=== PATIENT | female | born 1930 | race Caucasian/White ===

== ENCOUNTER 2017-01-30 15:09 | Observation (INO) | payer MEDICARE, OTHER ==
[2017-01-30] VITALS (7 sets, daily range): BP systolic 142–194; BP diastolic 43–73; PULSE 60–78; RESP 16–24; O2SAT 90–95
[~2017-01-30] VITALS: Ht 167.6 cm; Wt 53.1 kg
[~2017-01-30 15:09] MED LIST: ASPI-973 PO; ATOR20TA65 PO; CARV12.52 PO; FURO-129 PO; LISI-609 PO
--- NOTE | 2017-01-30 15:21 | ED.REPORT ---
HPI-Headache Date of Service Jan 30, 2017 ED Provider: Sergo Baker DO Pt is an 86 y/o female w/ a hx of HTN, HLD, colon CA s/p colectomy, presenting to the ED with her c/o sudden-onset L-sided frontoparietal headache which began at 12:00 today. The patient does not have a history of headaches and describes this headache as the worst she has ever had and at time of interview is rated 8/10 in severity. She c/o associated blurry vision from the right eye, intermittent SOB. Pt denies photophobia, focal numbness/weakness, speech changes, fever, or eye pain.. She has been hypoxic at night with O2 saturation in the high 80s which is about 6% lower than her typical. Her PCP is currently working this up and has her on supplemental oxygen at night. She is a poor historian. Nursing Notes Stated Complaint: BLURRED VISION IN LEFT EYE, HEADACHE Chief Complaint: Headache Nursing Notes Reviewed: Yes Allergies: Coded Allergies: No Known Allergies (Verified Allergy, Unknown, 01/30/17) Scheduled Aspirin (Aspirin) 81 Mg Tablet.dr 81 MG PO NOON Atorvastatin Calcium (Atorvastatin Calcium) 20 Mg Tablet 20 MG PO HS Carvedilol (Carvedilol) 12.5 Mg Tablet 12.5 MG PO BID Furosemide (Lasix) 20 Mg Tablet 20 MG PO BID Lisinopril (Zestril) 5 Mg Tablet 5 MG PO HS General Time Seen by MD: 15:19 Chief Complaint Worst headache of life Hx Obtained From: Patient, Spouse Arrived By: Walk-in Sudden in Onset?: Yes Onset Occurred: 1 - 4 hours ago Symptom Duration: Since onset Quality: Painful Severity: Current: Moderate Severity: Maximum: Moderate Similar Sx Previous: No Past Medical History Past Medical History LBBB Colon CA s/p colectomy Hyperlipidemia Hypertension Arthritis Past Surgical History Colon cancer removed in 1969 with colectomy Appendectomy Smoking History Former Smoker Social History Drug Use: Denies drug use Other Social History: Ambulatory Status Independent Review of Systems Constitutional: Denies: Fever Eyes: Reports: Blurred right, Denies: Photophobia Neurologic: Reports: Headache, Vision change, Denies: Change LOC, Confusion, Focal weakness, Numbness, Seizure, Shaking, Slurred speech, Syncope, Unable to speak Complete sys rev & neg: except as marked. Physical Exam Initial Vital Signs Vital Signs (First) Date Time Temp Pulse Resp B/P Pulse Ox O2 Delivery O2 Flow Rate FiO2 01/30/17 15:13 36.7 75 16 194/69 93 Room Air Initial VS: Reviewed, Vital signs abnormal ENT: Mucous membranes moist, Conjunctiva normal, No scleral icterus Respiratory: Breath sounds normal, Clear to auscultation, No respiratory distress Cardiovascular: Regular rate & rhythm, Heart sounds normal, Intact distal pulses Abdomen / GI: Soft, Non-tender Extremities: Vascular intact, Neuro intact, No swelling Skin: Warm, Dry, No cyanosis Psychiatric: Mood/affect normal, Behavior normal, Normal thought content General/Constitutional: Awake, Alert, No acute distress, Cooperative, Not toxic appearing Head / Eyes: Atraumatic, Normocephalic, PERRL, EOMI, No nystagmus, No periorbital redness, No periorbital swelling, No photophobia, No scleral icterus , Conjunctiva NL, Cornea clear, Fundi NL [place] 17 on R, 36 - 40 on left Neck: Atraumatic, Supple, No meningismus, Full range of motion Neurologic: Oriented X3, Speech NL, No motor deficits, No sensory deficits, CN II - XII intact, Cerebellar NL, Memory NL Mildly confused Interpretation & Diagnostics Lab Results Interpretation Result Diagram: 01/30/17 1548 01/30/17 1548 Test 01/30/17 15:48 01/30/17 15:49 White Blood Count 7.9th/mm3 (3.8-10.1) Red Blood Count 4.48mil/mm3 (3.90-5.20) Hemoglobin 14.2g/dL (12.0-15.6) Hematocrit 42.4% (35.0-46.0) Mean Corpuscular Volume 94.6fL (81-100) Mean Corpuscular Hemoglobin 31.7pg (27.0-35.0) Mean Corpuscular Hemoglobin Concent 33.5% (32.0-37.0) Red Cell Distribution Width 13.0% (12.3-15.4) Platelet Count 206bil/L (150-400) Neutrophils (%) (Auto) 71.3% (40-74) Lymphocytes (%) (Auto) 8.1% (14-46) Monocytes (%) (Auto) 16.4% (4-12) Eosinophils (%) (Auto) 3.6% (0-5) Basophils (%) (Auto) 0.3% (0-3) Prothrombin Time 11.0sec (8.1-12.5) Prothromb Time International Ratio 1.03ratio Activated Partial Thromboplast Time 27.5sec (22.8-33.0) Sodium Level 133mEq/L (134-144) Potassium Level 3.9mEq/L (3.5-5.2) Chloride Level 93mEq/L (97-108) Carbon Dioxide Level 26mmol/L (18-29) Blood Urea Nitrogen 14mg/dL (8-27) Creatinine 0.53mg/dL (0.57-1.00) Estimat Glomerular Filtration Rate 157mL/min (>59) Glucose Level 117mg/dL (60-99) Calcium Level 9.1mg/dL (8.5-10.1) Total Bilirubin 0.4mg/dL (0.0-1.2) Aspartate Amino Transf (AST/SGOT) 24U/L (0-50) Alanine Aminotransferase (ALT/SGPT) 17U/L (0-32) Alkaline Phosphatase 70U/L (25-165) Troponin T < 0.010ug/L (0.0-0.011) Total Protein 6.8g/dL (6.4-8.4) Albumin 3.6g/dL (3.4-5.0) Hold Resendez Top Tube Received (Received) ECG Interpretation ECG Interpretation: Sinus rhythm rate 65 Prolonged KS interval LVH with IVCD Non-specific ST changes Possible LBBB - has history of LBBB in the past No change from previous Time: 17:12 Interpreted by: ED physician X-Ray Chest Interpretation Chest Xray Interpretation: IMPRESSION: Acute disease is not seen an AP portable chest. Cause of this is not identified Dictated by: Jean-Pierre Jiménez M.D. on 01/30/2017 at 16:18 Approved by: Jean-Pierre Jiménez M.D. on 01/30/2017 at 16:19 View: Portable, 1 view Interpretation / Wet Read by: Interpret - Radiologist CT Head Interpretation IMPRESSION: Abnormal focus probably calcification versus less likely bleed in the white matter of the left frontal lobe. Follow up scan in 6 hours would be useful. No other abnormality other than some atrophy and microvascular ischemic change of aging. Dictated by: Jean-Pierre Jiménez M.D. on 01/30/2017 at 15:56 Approved by: Jean-Pierre Jiménez M.D. on 01/30/2017 at 16:08 Study: Head CT no contrast Interpretation / Wet Read by: Interpret - Radiologist Re-Eval/Medical Decision Med Decision/Clinical Course Patient presents with sudden onset of left-sided headache with right eye blurred vision. Differential diagnosis initially included subarachnoid hemorrhage, subdural hematoma, tension headache, migraine, acute angle closure glaucoma. Head CT is performed and shows a small 4 mm either calcification or small bleed. Neurosurgery at [place] was consulted and recommends a 6 hour follow-up and is available to take the patient for transfer in the event of any change in patient's status. The patient is a very poor historian and for this reason more resource intensive workup was performed. Patient complained of blurred vision in the right eye and pain in left side of the head without left eye pain. Eye exam is overall normal with the exception of elevated pressure in the left eye. This is discussed with ophthalmology. They recommend timolol drops and follow-up in the morning assuming the patient is otherwise stable for discharge. Patient's labs are reassuring, she is completely pain-free after 25 g of fentanyl. She will be held for observation in the ER for subsequent head CT. Her blood pressure is being managed with a combination of one dose of IV labetalol, nicardipine infusion, and oral amlodipine. Ultimately be transferred to Dr. Vuong for ongoing observation, blood pressure management, and subsequent head CT. Source of Hx: Old records Re-Evaluation/Progress #1: Time of Eval: 16:08 Re-Evaluation/Progress Note: Discussed imaging results thus far and need for consult. Re-Evaluation/Progress #2: Time of Eval: 17:58 Re-Evaluation/Progress Note: Recheck of eye pressure after [place] drop, pressure is 37. Headache completely resolved. Consultation #1: Call Returned at: 16:48 De Icer: Agrees with eval, Requested manager labor relations Note: Case discussed with neurosurgeon Dr. Smith in [facility]. 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 Consultation #2: Referral / Consult Name: [facility] Consulted With: Bookkeeping Service Sales Agent Call Returned at: 17:51 De Icer: Agrees with eval, Agrees with plan Note: Discussed case with Dr. Robles. If eye pressure is in the 30s she can be seen in clinic tomorrow. Counseled Regarding: Diagnosis, Lab results Discharge & Departure Impression: Primary Impression: Headache Headache type: unspecified Headache chronicity pattern: acute headache Intractability: not intractable Qualified Code: R51 - Headache Discharge Condition All VS Reviewed: Yes Condition: Stable Referrals: Niesha Hammond DO Care Transferred to: Dr. Vuong Care Transferred at: 18:30 Crit Care Except Billable Proc Time Spent: 30-74 minutes Services Performed: Patient management by me, Time spent at bedside, Reviewing test results, Reviewing imaging, Discussing patient care, Documentation in record Critical Care Notes: 60 minutes for possible cerebral hemorrhage and titration of anti-hypertensives Scribe Attestation Portions of this note were transcribed by David Hawley. I, Dr. Baker personally performed the history, physical exam and medical decision-making; I reviewed and confirmed the accuracy of the information in the transcribed note. copies to: Niesha Hammond Timothy S DO Jan 30, 2017 15:21 DAVID HAWLEY Jan 30, 2017 15:29
[2017-01-30] MEDS ORDERED: fentaNYL-PF 50 mCg/mL 2 mL Inj IVPUSH ONE (15:40)
[2017-01-30] MEDS ORDERED: Ondansetron 2 mg/mL 2 mL Inj IVPUSH PRN (15:40)
[2017-01-30 15:56] LABS: BASOPHILS % (AUTO) 0.3 % (0-3); EOSINOPHILS % (AUTO) 3.6 % (0-5); MONOCYTES % (AUTO) 16.4 % (4-12); Mean Corpuscular Hemoglobin 31.7 pg (27.0-35.0); Mean Corpuscular Volume 94.6 fL (81-100); NEUTROPHILS % (AUTO) 71.3 % (40-74); Platelet Count 206 bil/L (150-400)
[2017-01-30] MEDS ORDERED: Tetracaine 0.5% 4 mL Ophthalmic Solution ONE (16:07)
--- NOTE | 2017-01-30 16:10 | DRSVH ---
PROCEDURE: CT BRAIN WITHOUT CONTRAST ([id number]) INDICATIONS: headache TECHNIQUE: Noncontrast 4.5 mm thick angled axial sections acquired from the foramen magnum to the vertex, with c oronal reformats. COMPARISON: None. FINDINGS: Image quality: Good CSF spaces: Basal cisterns are patent. No extra-axial fluid collections. The ventricles are symmet berkley in size and shape. Brain: No intracranial masses. There is a 4 mm focus of density in the white matter of the posterior left frontal lobe. Maximum Hounsfield unit is 86. This is unlikely to be hemorrhagic focus based upo n location and history of headache but this cannot be excluded at this point as an acute bleed with t he minimal clot. There is cerebral volume loss for age, with resultant ventricular and sulcal promine nce. There are periventricular and deep white matter chronic small vessel ischemic changes. There i s intracranial internal carotid artery atherosclerosis. Skull and face: Calvarium and visualized facial bones appear intact, without suspicious lesions. Sinuses: Visualized sinuses and mastoids are clear. IMPRESSION: Abnormal focus probably calcification versus less likely bleed in the white matter of the left frontal lobe. Follow up scan in 6 hours would be useful. No other abnormality other than some atrophy and microvascular ischemic change of aging. Dictated by: Jean-Pierre Jiménez M.D. on 01/30/2017 at 15:56 Approved by: Jean-Pierre Jiménez M.D. on 01/30/2017 at 16:08
[2017-01-30 16:11] LABS: INR 1.03 ratio
--- NOTE | 2017-01-30 16:21 | DRSVH ---
PROCEDURE: X-RAY CHEST ONE VIEW, PORTABLE ([id number]) INDICATIONS: dyspnea TECHNIQUE: One view of the chest was acquired. COMPARISON: [facility], CR, XR [employer] [facility] CXR MIN 3VW RT, 03/13/2016, 14:17. FINDINGS: Surgical changes and devices: threat monitoring analyst leads are seen over the chest. Lungs and pleura: No pleural effusions or pneumothorax. Lungs are clear. Mediastinum: Mediastinal contours appear normal. Calcified lymph nodes in the mediastinum consistent with old granulomatous disease are noted. Heart size is normal. Bones and chest wall: No suspicious bony lesions. Overlying soft tissues appear unremarkable. IMPRESSION: Acute disease is not seen an AP portable chest. Cause of this is not identified Dictated by: Jean-Pierre Jiménez M.D. on 01/30/2017 at 16:18 Approved by: Jean-Pierre Jiménez M.D. on 01/30/2017 at 16:19
[2017-01-30 16:41] LABS: TROPONIN T < 0.010 ug/L (0.0-0.011)
[2017-01-30] MEDS ORDERED: Labetalol 5 mg/mL 20 mL Inj IVPUSH ONE (16:45)
[2017-01-30] MEDS: 0.9% Sodium Chloride 1,000 ML IV ONE ×2 (16:54→16:58)
[2017-01-30] MEDS ORDERED: Timolol 0.5% 5 mL Ophthalmic Solution LEFT_EYE ONE (17:10)
[2017-01-30] MEDS ORDERED: NiCARdipine Inj 25 MG in Dextrose 5% 240 ML IV SCH (17:25)
[2017-01-30 20:12] LABS: APPEARANCE,URINE CLEAR (CLEAR,HAZY); COLOR,URINE STRAW (YELLOW); OCCULT BLOOD,URINE NEGATIVE (NEGATIVE); UROBILINOGEN,URINE NORMAL (NORMAL)
--- NOTE | 2017-01-30 22:12 | DRSVH ---
PROCEDURE: CT BRAIN WITHOUT CONTRAST ([id number]) INDICATIONS: f/u headache TECHNIQUE: Noncontrast 4.5 mm thick angled axial sections acquired from the foramen magnum to the vertex, with c oronal reformats. COMPARISON: [facility], CT, CT BRAIN WO CON, 01/30/2017, 15:52. FINDINGS: Image quality: Excellent. CSF spaces: Basal cisterns are patent. No extra-axial fluid collections. The ventricles are symmet berkley in size and shape. Brain: No intracranial bleeds or masses. There is cerebral volume loss for age, with resultant vent ricular and sulcal prominence. There are periventricular and deep white matter chronic small vessel ischemic changes. There is intracranial internal carotid artery atherosclerosis. The density in the left frontal white matter remains completely unchanged and is consistent with a ca lcification rather than a small hemorrhagic focus. Skull and face: Calvarium and visualized facial bones appear intact, without suspicious lesions. Sinuses: Visualized sinuses and mastoids are clear. IMPRESSION: No evidence for acute disease is seen in the CT of the brain in conjunction with previous images. A small focus of density in the white matter of the left frontal lobe is a small calcificati on of no significance. It is not a bleed. Dictated by: Jean-Pierre Jiménez M.D. on 01/30/2017 at 22:08 Approved by: Jean-Pierre Jiménez M.D. on 01/30/2017 at 22:10
[2017-01-31] VITALS (9 sets, daily range): BP systolic 140–191; BP diastolic 53–86; PULSE 72–94; RESP 18–24; O2SAT 92–94
[2017-01-31] MEDS ORDERED: hydrALAZINE 20 mg/mL Inj IVPUSH PRN (01:20)
[2017-01-31] MEDS ORDERED: Ondansetron 2 mg/mL 2 mL Inj IVPUSH PRN (01:20)
[2017-01-31] MEDS ORDERED: Polyethylene Glycol (PEG) 17 Gm Powder PO PRN (01:20)
[2017-01-31] MEDS ORDERED: Alum-Mag Hydrox-Simeth 30 mL Suspension PO PRN (01:20)
[2017-01-31] MEDS ORDERED: Labetalol 5 mg/mL 20 mL Inj IVPUSH PRN (01:20)
--- NOTE | 2017-01-31 01:49 | PCM.HPMED ---
Subjective Date of Service Jan 31, 2017 Primary Provider: Admitting Physician: Navjot Perez MD Primary Care Physician: Niesha Hammond DO Attending Physician: Navjot Perez MD Admit Status: From the Emergency Department Chief Complaint: Blurred vision in left eye and headache History of Present Illness: Patient is an 86-year-old female with a history of hypertension, each of these, colon cancer status post colectomy, she presented to the emergency department with her with a sudden onset left-sided frontoparietal headache which began at noon today. Patient is a poor historian Patient reports that on Tuesday morning she developed a headache that was very bad in her left frontal parietal. She states there were no other symptoms. Patient denies nausea, vomiting, dizziness, facial droop, inability to find words, difficulty communicating. Patient admits to a generalized weakness, not favoring one limb. She was unable to give a more complete description of the events. Review of Systems: Complete ROS was performed and pertinent positives and negatives included in the history of present illness. All other findings were negative. Allergies Coded Allergies: No Known Allergies (Verified Allergy, Unknown, 01/30/17) Home Medications Aspirin (Aspirin) 81 Mg Tablet.dr 81 MG PO NOON Atorvastatin Calcium (Atorvastatin Calcium) 20 Mg Tablet 20 MG PO HS Carvedilol (Carvedilol) 12.5 Mg Tablet 12.5 MG PO BID Furosemide (Lasix) 20 Mg Tablet 20 MG PO BID Lisinopril (Zestril) 5 Mg Tablet 5 MG PO HS PMH LBBB Colon CA s/p colectomy Hyperlipidemia Hypertension Arthritis Surgical History Colon cancer removed in 1970 with colectomy Appendectomy Family History No known family history of stroke, [place] Social History Hx Alcohol Use: Yes Hx Substance Use: No Hx Tobacco Use: No Smoking Status: Former Smoker Living Arrangement: with Family Exam Vital Signs Vital Sign - Last Date Time Temp Pulse Resp B/P Pulse Ox O2 Delivery O2 Flow Rate FiO2 01/31/17 00:25 75 18 140/53 94 Nasal Cannula 2 01/30/17 15:13 36.7 Exam General: Nondistressed, well-developed well-nourished female HEENT: NC/AT, EOM intact. Nontender sinuses, no nasal discharge. Poor dentation, no erythema, nor exudate present in oropharynx. No thyromegaly appreciated. Injected conjunctivae left eye. Constricted pupil in the right eye compared to left. CV: Regular rate and rhythm, no murmurs, gallops, or rubs appreciated RESP: Clear to auscultation bilaterally, no wheezes or rhonchi appreciated ABD: Bowel sounds normal, nondistended, nontender to palpation. EXT: No joint swelling, 1+ edema lower limb bilaterally LYMPH: No cervical or axillary adenopathy appreciated NEURO: Symmetric face, cranial nerves grossly intact, strength intact bilaterally upper and lower extremities, sensation to light touch intact bilaterally upper and lower extremities. PSYCH: Oriented 4. Linear and appropriate conversation. Some forgetfulness and vague answers Skin: No rashes or ecchymosis appreciated Lab and Diagnostics Result Diagram: 01/30/17 1548 01/30/17 1548 Assessment & Plan Patient is an 86-year-old female who presented to the emergency department with headache and left eye blurriness with a history of hypertension, and she will be , colon cancer status post colectomy 1. Headache, present upon admission and ongoing -Sudden headache accompanied by blurred vision in the right eye in the setting of history of hypertension, rule out hemorrhagic stroke -First head CT indicated bleed versus calcification, repeat head CT 2 hours later showed no change suggestive of calcification -Repeat head MRI tomorrow morning -Verify with spouse in the morning that she is at her baseline in mentation 2. Blurred vision, present upon admission and ongoing -Patient was found to have pressure of 36-40 in the left eye -Ophthalmology was consulted and recommended timolol drops -Ophthalmology recommends outpatient follow-up tomorrow, providing eye pressures remain in the 30s or less and she is safe for discharge 3. Hypertension, present upon admission and ongoing -Patient at 156/53 upon arrival at emergency department. -IV labetalol to goal of 150 to 180 systolic Patient is being admitted as observation status. I expect her to spend less than 2 midnights in the hospital Pain Evaluation: Adequate Pain Control GI Prophylaxis: Not indicated VTE Prophylaxis: SCDs Resuscitation Status: CPR: Attempt Resuscitation Attending Statement The patient was seen and examined together with Dr. Huerta on 01/31 and I agree with the history, exam and plan as outlined in the note above. Mayra Huerta DO Jan 31, 2017 01:49 Navjot Perez MD Jan 31, 2017 19:41
--- NOTE | 2017-01-31 02:21 | NUR ---
admit note/med rec Pt is admitted to room 3020 around 01:30 from ED for TIA. Pt is alert and oriented to self only, very forgetful. reported tolerable 5/10 right anterior headache, now moving to left forehead; left eye is red and left pupil is sluggish. Gets moderately SOB with exertion, resolves quickly after resting. transferred [place] to bed. Pt on 2L O2, sating mid 90s. usually uses home O2 at night; pt couldn't remember what for or how much O2. Pt is oriented to room and plan of care; she verbalized understanding. bed alarm on for safety. Unable to complete med rec because pt is unable to recall her home meds. will try again in AM or call in AM.
[2017-01-31 03:12] LABS: BASOPHILS % (AUTO) 0.3 % (0-3); EOSINOPHILS % (AUTO) 3.2 % (0-5); MONOCYTES % (AUTO) 12.4 % (4-12); Mean Corpuscular Hemoglobin 31.5 pg (27.0-35.0); Mean Corpuscular Volume 93.7 fL (81-100); NEUTROPHILS % (AUTO) 74.7 % (40-74); Platelet Count 203 bil/L (150-400)
[2017-01-31 03:37] LABS: Magnesium 1.9 mg/dL (1.6-2.6)
[2017-01-31] MEDS: Heparin 5,000 Unit/mL Inj SUBQ SCH ×2 (04:18→14:37)
--- NOTE | 2017-01-31 11:14 | NUR ---
Case Management- [employer] explained and signed/timed. Copy given to patient. Original placed in room. Hilda Mantilla RN, CCM
--- NOTE | 2017-01-31 12:28 | NUR ---
Off unit Pt off unit to MRI, [employer] aware. Addendum: 01/31/17 at 1351 by THIAGO MORRISSEY RN Pt back on unit at 1310, technical services analyst aware.
--- NOTE | 2017-01-31 13:32 | DRSVH ---
PROCEDURE: MRA ANGIOGRAM HEAD WITHOUT CONTRAST ([id number]) INDICATIONS: HEADACHES,EVALUATE FOR CVA TECHNIQUE: Noncontrast axial 3-D [id number] MR angiogram, with 3-dimensional maximum intensity projection (M IP) reformats of the internal carotid arteries and posterior circulation then performed. COMPARISON: CT brain 01/30/2017. FINDINGS: Image quality: Excellent. Anterior circulation: Intracranial internal carotid arteries demonstrate normal size and intralumina l flow signal. The flow within the paired anterior cerebral arteries is normal and symmetric. The f low within the middle cerebral arteries is normal and symmetric. The anterior communicating artery i s seen. No stenoses, occlusions, or aneurysms. Posterior circulation: Visualized portions of the vertebral arteries demonstrate normal caliber, and join to form a normal appearing basilar artery. The flow within the posterior cerebral arteries is normal and symmetric. No stenoses, occlusions, or aneurysms. IMPRESSION: Normal-appearing intracranial vasculature, no aneurysm or occlusion seen. Dictated by: Eric Romero M.D. on 01/31/2017 at 13:25 Approved by: Eric Romero M.D. on 01/31/2017 at 13:30
--- NOTE | 2017-01-31 13:40 | DRSVH ---
PROCEDURE: MRI BRAIN WITHOUT CONTRAST ([id number]) INDICATIONS: HEADACHE TECHNIQUE: Non-contrast axial T1 spin echo, axial T2 fast spin echo, sagittal and axial FLAIR, coronal T2 fast s pin echo, axial gradient echo, axial diffusion and ADC through the brain. COMPARISON: None. FINDINGS: Image quality: Excellent. CSF spaces: Ventricles appear symmetric in size and shape. Basal cisterns are patent. No extra-axi al fluid collections. Brain: No intracranial bleeds or mass effects. There is moderate cerebral volume loss for age. The re are mild periventricular and deep white matter chronic small vessel ischemic changes. Brainstem a ppears normal. Diffusion-weighted images show no acute ischemic insults. No chronic ischemic insult s. Normal intravascular flow voids are present. Skull and face: Calvarial bone marrow is normal in signal. Orbits are normal. Sinuses: Sinuses and mastoids are clear. IMPRESSION: 1. No acute intracranial findings. No acute infarct. 2. Volume loss and periventricular white matter changes likely associated with chronic microvascular ischemia.. Dictated by: Stefani Sebastian M.D. on 01/31/2017 at 13:22 Approved by: Stefani Sebastian M.D. on 01/31/2017 at 13:38
--- NOTE | 2017-01-31 14:42 | NUR ---
Social Work: Initial Assessment Data: See initial assessment. Patient is a 86 year old female who was admitted to [facility] on 01/31/17 for TIA per H&P. Patient's insurance is Medicare and [facility]. Patient's PCP is Niesha Hammond DO. EMR reviewed. SW met with patient to discuss discharge planning. SW role explained. Patient informed SW that she lives with her in [place]. Patient considers her spouse to be her main support person. Patient confirms that her spouse is her DPOA and that AD have been completed on her behalf. Patient states that she uses a walker at baseline and has oxygen that she uses at night time only. Her oxygen provider is [facility]. Patient states that her home is one story and has a ramp at the entrance. Patient does not drive and relies on her spouse for transportation needs. Patient denies having a hx of home health services of SNF. Patient denies having long term care phlebotomist care insurance or VA benefits. Upon discharge, patient states that her spouse will assist with transportation needs. SW provided patient with a discharge planning checklist and encouraged to call with any questions or concerns. Phone number provided. Patient was discussed in morning rounds. During rounds, no concerns were noted by MD or staff. SW will continue to follow for needs. Assessment: Patient will discharge home with spouse. Plan: Patient will discharge home with spouse. Spouse will assist with transportation needs. SW will continue to follow. CAROLIN Couch Addendum: 01/31/17 at 1457 by ROXI TRISTAN SS Amended: Links added.
[2017-01-31] MEDS ORDERED: LISI-567 PO (16:44)
--- NOTE | 2017-01-31 16:47 | PCM.DIMED ---
Discharge Instructions Date of Service Jan 31, 2017 Dates of Hospitalization Jan 31, 2017 at 01:03 Discharge Diagnosis Discharge Diagnosis Headache HTN Diet Discharge Diet: Low fat, Low Sodium, Heart Healthy Activity Discharge Activity: Limited until seen by PCP Call your provider Call your provider for: Fever or Chills, Excessive diarrhea, Weakness ( unilateral) Patient Instructions Follow-up with PCP in: Other (Tuesday at 8:05 am , please ask for referral for opthalmologist ) Navin Bryant MD Jan 31, 2017 16:47
--- NOTE | 2017-01-31 16:54 | PCM.DC.MED ---
Discharge Summary Date of Service Jan 31, 2017 Dates of Hospitalization Date of Hospital Admission Jan 31, 2017 at 01:03 Date of Discharge: Jan 31, 2017 Providers: Admitting Physician: Navjot Perez MD Primary Care Physician: Niesha Hammond DO Attending Physician: Lexie Easton MD Diagnosis at Time of Discharge Diagnosis at Time of Discharge Headache HTN Brief History Patient is an 86-year-old female with a history of hypertension, each of these, colon cancer status post colectomy, she presented to the emergency department with her with a sudden onset left-sided frontoparietal headache which began at noon today. Patient is a poor historian Patient reports that on Tuesday morning she developed a headache that was very bad in her left frontal parietal. She states there were no other symptoms. Patient denies nausea, vomiting, dizziness, facial droop, inability to find words, difficulty communicating. Patient admits to a generalized weakness, not favoring one limb. She was unable to give a more complete description of the events. Hospital Course Patient is an 86-year-old female who presented to the emergency department with headache and left eye blurriness with a history of hypertension, and she will be , colon cancer status post colectomy 1. Headache, present upon admission, resolved -Sudden headache accompanied by blurred vision in the right eye in the setting of history of hypertension -First head CT indicated bleed versus calcification, repeat head CT 2 hours later showed no change suggestive of calcification -MRI -ve for any acute changes 2. Blurred vision, present upon admission, ongoing -Patient was found to have pressure of 36-40 in the left eye -Ophthalmology was consulted and recommended timolol drops -Ophthalmology recommends outpatient follow-up tomorrow, providing eye pressures remain in the 30s or less and she is safe for discharge 3. Hypertension, present upon admission and ongoing -increased lisinopril to 20mg daily, rest of the meds to be continued Plan is for patient to have better blood pressure control, which could have caused the headache, and follow up with pcp for referral to lead machinist. Exam Vital Signs (Last) Date Time Temp Pulse Resp B/P Pulse Ox O2 Delivery O2 Flow Rate FiO2 01/31/17 15:45 36.6 94 18 162/76 94 Room Air 01/31/17 13:00 2.00 Test 01/30/17 15:48 01/30/17 15:49 01/30/17 19:52 01/31/17 01:43 Prothrombin Time 11.0sec (8.1-12.5) Prothromb Time International Ratio 1.03ratio Activated Partial Thromboplast Time 27.5sec (22.8-33.0) Troponin T < 0.010ug/L (0.0-0.011) Hold Resendez Top Tube Received (Received) Urine Color Straw (YELLOW) Urine Appearance Clear (CLEAR,HAZY) Urine pH 7.0 (5.0-8.0) Urine Specific [place] 1.010 (1.003-1.035) Urine Protein Negativemg/dL (NEG,TRACE) Urine Glucose (UA) Negativemg/dL (NEGATIVE) Urine Ketones Negativemg/dL (NEGATIVE) Urine Occult Blood Negative (NEGATIVE) Urine Nitrite Negative (NEGATIVE) Urine Bilirubin Negative (NEGATIVE) Urine Urobilinogen Normalmg/dL (NORMAL) Urine Leukocyte Esterase Trace (NEGATIVE) Urine RBC 0-2/hpf (0-2) Urine WBC 0-5/hpf (0-5) Urine Epithelial Cells Few/hpf (NONE-MOD) Urine Crystals None seen (NONE SEEN) Urine Bacteria Few/hpf (NONE-FEW) Urine Hyaline Casts None/lpf (NONE) Urine Granular Casts None seen (NONE SEEN) Urine Waxy Casts None seen (NONE SEEN) Urine Red Blood Cell Casts None seen (NONE SEEN) Urine White Blood Cell Casts None seen (NONE SEEN) Urine Mucus None seen (None Seen) Urine Trichomonas None seen (NONE SEEN) Urine Yeast None (NONE SEEN) Urinalysis Comment None Urine Culture Reflexed Indicated Test 01/31/17 02:40 White Blood Count 9.5th/mm3 (3.8-10.1) Red Blood Count 4.41mil/mm3 (3.90-5.20) Hemoglobin 13.9g/dL (12.0-15.6) Hematocrit 41.3% (35.0-46.0) Mean Corpuscular Volume 93.7fL (81-100) Mean Corpuscular Hemoglobin 31.5pg (27.0-35.0) Mean Corpuscular Hemoglobin Concent 33.7% (32.0-37.0) Red Cell Distribution Width 12.9% (12.3-15.4) Platelet Count 203bil/L (150-400) Neutrophils (%) (Auto) 74.7% (40-74) Lymphocytes (%) (Auto) 9.2% (14-46) Monocytes (%) (Auto) 12.4% (4-12) Eosinophils (%) (Auto) 3.2% (0-5) Basophils (%) (Auto) 0.3% (0-3) Sodium Level 134mEq/L (134-144) Potassium Level 3.6mEq/L (3.5-5.2) Chloride Level 95mEq/L (97-108) Carbon Dioxide Level 23mmol/L (18-29) Blood Urea Nitrogen 10mg/dL (8-27) Creatinine 0.40mg/dL (0.57-1.00) Estimat Glomerular Filtration Rate 217mL/min (>59) Glucose Level 106mg/dL (60-99) Calcium Level 8.6mg/dL (8.5-10.1) Magnesium Level 1.9mg/dL (1.6-2.6) Total Bilirubin 0.7mg/dL (0.0-1.2) Aspartate Amino Transf (AST/SGOT) 20U/L (0-50) Alanine Aminotransferase (ALT/SGPT) 16U/L (0-32) Alkaline Phosphatase 67U/L (25-165) Total Protein 6.4g/dL (6.4-8.4) Albumin 3.3g/dL (3.4-5.0) Triglycerides Level 50mg/dL (0-149) Cholesterol Level 138mg/dL (100-199) LDL Cholesterol, Calculated 60.000mg/dL (0-99) VLDL Cholesterol 10.000mg/dL HDL Cholesterol 68mg/dL (>39) Cholesterol/HDL Ratio 2.03 (0.0-4.4) Discharge Medications Discharge Medications Aspirin (Aspirin) 81 Mg Tablet.dr 81 MG PO NOON (Reported) Atorvastatin Calcium (Atorvastatin Calcium) 20 Mg Tablet 20 MG PO HS (Reported) Carvedilol (Carvedilol) 12.5 Mg Tablet 12.5 MG PO BID (Reported) Furosemide (Lasix) 20 Mg Tablet 20 MG PO BID Prescribed by: LINDA GRIMALDO MD Lisinopril (Zestril) 5 Mg Tablet 5 MG PO HS Prescribed by: IBIS BOND MD Lisinopril (Lisinopril) 20 Mg Tablet 20 MG PO HS Prescribed by: LEXIE EASTON MD Followup Plan Discharge Diet: Low fat, Low Sodium, Heart Healthy Discharge Activity: Limited until seen by PCP Follow-up with PCP in: Other (Tuesday at 8:05 am , please ask for referral for opthalmologist ) Time spent 35 mins Lexie Easton MD Jan 31, 2017 16:54
[2017-01-31] MEDS ORDERED: TIMO1DRO4 OP (16:59)
--- NOTE | 2017-01-31 17:19 | NUR ---
Social Work: Discharge Data & Assessment: EMR reviewed. Patient is on day 1 of hospitalization for TIA per H&P. Patient has been deemed medically stable for discharge today per MD. Patient will discharge home with spouse. Spouse will assist with transportation needs. Patient has no additional needs at this time. Plan: Patient will discharge home today. Transportation will be provided by spouse. Patient has no additional needs at this time. CAROLIN Couch
--- NOTE | 2017-01-31 18:20 | NUR ---
DISCHARGE Pt dc'd home this evening at 1800, off unit in w/c accompanied by pt's and MAIL SERVICE COORDINATOR. Vital signs stable, pt alert with forgetfulness per baseline, denies any pain and in no apparent distress. IV dc'd intact, all belongings returned. All instructions for diet, activity, medications, prescriptions and follow up reviewed with pt and pt's , who report understanding.
== END 2017-01-31 18:04 | disposition home or self-care (01) ==
LOC: SED 15:09 → INTOOBSV 01-31 01:03 → MPC 01-31 01:03
PROVIDERS: ADMIT Hospitalist; ATTEND Hospitalist
DX: R51 Headache (principal); H53.8 Other visual disturbances; I10 Essential (primary) hypertension; I44.7 Left bundle-branch block, unspecified; E78.5 Hyperlipidemia, unspecified; M19.90 Unspecified osteoarthritis, unspecified site; Z79.82 Long term (current) use of aspirin; Z85.038 Personal history of other malignant neoplasm of large intestine; Z90.49 Acquired absence of other specified parts of digestive tract; Z87.891 Personal history of nicotine dependence
CPT/HCPCS: 36415; 70450; 70544; 70551; 71010; 80053; 80061; 81000; 83036; 83735; 84484; 85025; 85610; 85730; 87086; 87088; 93005; 96365; 96372; 96375; 99285; G0378; J1644